=== PATIENT | female | born 1970 | race Caucasian/White ===

== ENCOUNTER 2017-06-06 19:53 | Emergency (ER) | payer OTHER ==
[2017-06-06] MEDS ORDERED: METHYLNALTREXONE BROMIDE (RELISTOR) 12MG/0.6ML SYRINGE SQ ONE (21:20)
--- NOTE | 2017-06-06 21:46 | Emergency Department Record ---
History of Present Illness - General Chief Complaint: General Stated Complaint: CONSTIPATION Time Seen by Provider: 06/06/17 21:20 Source: Patient Mode of Arrival: Ambulatory Limitations: No limitations - History of Present Illness Initial Comments: pt has had no bm for 3 days and is constipated. she has tried fleets enemas, stool softener, and laxatives without results. she attributes her constipation to taking a few tyl 3. she normally has diarrhea MD Complaint: Abdominal pain -: Days(s) Location: Diffuse Severity: Moderate Consistency: Constant, Getting worse Improves With: Nothing Associated Symptoms: Constipation - Related Data Home Medications Medication Instructions Recorded Confirmed Last Taken Amitriptyline HCl [Elavil] 10 mg PO DAILY 06/06/17 06/06/17 Unknown Fluoxetine HCl [Prozac] 10 mg PO DAILY 06/06/17 06/06/17 Unknown Mirabegron [Myrbetriq] 50 mg PO DAILY 06/06/17 06/06/17 Unknown Remicade Infusions-Q 10 Wks 1 06/06/17 Unknown Previous Rx's Medication Instructions Recorded Ondansetron [Zofran Odt] 4 mg PO Q8H #10 tab.rapdis 06/07/17 Allergies Allergy/AdvReac Type Severity Reaction Status Date / Time iodine Allergy ANAPHYLAXIS Verified 05/26/14 11:16 Travel Screening - Travel/Exposure Within Last 30 Days Have you traveled within the last 30 days?: No - Travel Symptoms Symptom Screening: None Review of Systems Reviewed: No additional complaints except as noted below Constitutional: Reports: As per HPI. Denies: Chills, Fever, Malaise, Night sweats, Weakness, Weight change Eyes: Reports: As per HPI. Denies: Eye discharge, Eye pain, Photophobia, Vision change ENT: Reports: As per HPI. Denies: Congestion, Dental pain, Ear pain, Epistaxis , Hearing loss, Throat pain Respiratory: Reports: As per HPI. Denies: Cough, Dyspnea, Hemoptysis, Stridor, Wheezes Cardiovascular: Reports: As per HPI. Denies: Arrhythmia, Chest pain, Dyspnea on exertion, Edema, Murmurs, Orthopnea, Palpitations, Paroxysmal nocturnal dyspnea, Rheumatic Fever, Syncope Endocrine: Reports: As per HPI. Denies: Fatigue, Heat or cold intolerance, Polydipsia, Polyuria Gastrointestinal: Reports: As per HPI, Constipation. Denies: Abdominal pain, Diarrhea, Hematemesis, Hematochezia, Melena, Nausea, Vomiting Genitourinary: Reports: As per HPI. Denies: Abnormal menses, Discharge, Dyspareunia, Dysuria, Frequency, Hematuria, Incontinence, Retention, Urgency Musculoskeletal: Reports: As per HPI. Denies: Arthralgia, Back pain, Gout, Joint swelling, Myalgia, Neck pain Skin: Reports: As per HPI. Denies: Bruising, Change in color, Change in hair/ nails, Lesions, Pruritus, Rash Neurological: Reports: As per HPI. Denies: Abnormal gait, Confusion, Headache, Numbness, Paresthesias, Seizure, Tingling, Tremors, Vertigo, Weakness Psychiatric: Reports: As per HPI. Denies: Anxiety, Auditory hallucinations, Depression, Homicidal thoughts, Suicidal thoughts, Visual hallucinations Hematological/Lymphatic: Reports: As per HPI. Denies: Anemia, Blood Clots, Easy bleeding, Easy bruising, Swollen glands Past Medical History - SOCIAL HISTORY Smoking Status: Never smoker - RESPIRATORY Hx Respiratory Disorders: No - CARDIOVASCULAR Hx Cardio Disorders: No - NEURO Hx Neuro Disorders: No - GI Hx GI Disorders: Yes Hx Abdominal Pain: Yes (comes and goes) Hx Crohn's Disease: Yes Hx Rectal Bleeding: Yes - Hx Genitourinary Disorders: Yes Hx Bladder Problem: Yes (frequency) - ENDOCRINE Hx Endocrine Disorders: Yes - MUSCULOSKELETAL Hx Musculoskeletal Disorders: No - PSYCH Hx Psych Problems: Yes Hx Anxiety: Yes Hx Depression: Yes - HEMATOLOGY/ONCOLOGY Hx Hematology/Oncology Disorders: No Family Medical History Any Significant Family History?: Yes Hx Diabetes: Father Hx Heart Disease: Father Hx HTN: Father Hx Stroke: Father Physical Exam - General General Appearance: Alert, Oriented x3, Cooperative, Mild distress - Head Head exam: Normal inspection - Eye Eye exam: Normal appearance, PERRL, EOMI Pupils: Normal accommodation - ENT ENT exam: Normal exam, Mucous membranes moist, Normal external ear exam, Normal orophraynx Ear exam: Normal external inspection. negative: External canal tenderness Nasal Exam: Normal inspection. negative: Discharge, Sinus tenderness Mouth exam: Normal external inspection, Tongue normal Teeth exam: Normal inspection. negative: Dental caries Throat exam: Normal inspection. negative: Tonsillar erythema, Tonsillar exudate - Neck Neck exam: Normal inspection, Full ROM. negative: Tenderness - Respiratory Respiratory exam: Normal lung sounds bilaterally. negative: Respiratory distress - Cardiovascular Cardiovascular Exam: Regular rate, Normal rhythm, Normal heart sounds - GI/Abdominal GI/Abdominal exam: Soft, Normal bowel sounds, Tenderness - Rectal Rectal exam: Deferred - exam: Deferred - Extremities Extremities exam: Normal inspection, Full ROM, Normal capillary refill. negative: Tenderness - Back Back exam: Reports: Normal inspection, Full ROM. Denies: Muscle spasm, Rash noted, Tenderness - Neurological Neurological exam: Alert, CN II-XII intact, Normal gait, Oriented X3 - Psychiatric Psychiatric exam: Normal affect, Normal mood - Skin Skin exam: Dry, Intact, Normal color, Warm Course Vital Signs 06/06/17 06/06/17 20:33 21:02 Temperature 98.5 F 98.5 F Pulse Rate [ 93 H Pulse Ox Probe] Respiratory 18 Rate Blood Pressure 165/110 [Left Arm] Pulse Ox 97 - Reevaluation(s) Reevaluation #1: 06/06/17 23:57 pt feels a little better Disposition Disposition: Discharge Clinical Impression: Constipation Qualifiers: Constipation type: slow transit constipation Qualified Code(s): K59.01 - Slow transit constipation Disposition: Home, Self-Care Condition: (1) Good Instructions: Constipation (ED), High Fiber Diet (ED), Magnesium Citrate (By mouth) Additional Instructions: follow up with family doctor. return sooner if worse. Prescriptions: Ondansetron [Zofran Odt] 4 mg PO Q8H #10 tab.rapdis Forms: Patient Portal Access Quality - Quality Measures Quality Measures: N/A - Blood Pressure Screening Does Patient Have Any of the Following: No Blood Pressure Classification: Pre-Hypertensive BP Reading Systolic Measurement: 135 Diastolic Measurement: 81 Screening for High Blood Pressure: < Pre-Hypertensive BP, F/U Documented > [ [id number]] Pre-Hypertensive Follow-up Interventions: Follow-up with rescreen every year.
[2017-06-06] MEDS ORDERED: ONDANSETRON 4 MG ODT TABLET SL ONE (23:57)
[2017-06-06] MEDS ORDERED: MAGNESIUM CITRATE 296 ML BTL PO ONE (23:58)
== END 2017-06-07 00:13 | disposition home or self-care (01) ==
LOC: ER 19:53
DX: K59.01 Slow transit constipation (principal); R10.9 Unspecified abdominal pain
CPT/HCPCS: 99282

== ENCOUNTER 2017-08-05 09:35 | Day surgery (SDC) | payer OTHER ==
[2017-08-05] MEDS ORDERED: LIDOCAINE 2% MDV (20MG/ML) 20ML VIAL IV ONE (09:36)
[2017-08-05] MEDS ORDERED: PROPOFOL 10 MG/ML VIAL IV ONE (09:36)
--- NOTE | 2017-08-05 14:20 | Operative Note ---
DATE OF SURGERY: 08/05/2017 OPERATION: COLONOSCOPY with biopsy. PREOPERATIVE DIAGNOSIS: History of Crohn's colitis, rule out dysplasia. PROCEDURE: After informed consent was obtained from the patient, she was placed in the left lateral decubitus position in the endoscopy suite, sedated and monitored by the department of anesthesia. Digital rectal examination was unremarkable. A well-lubricated [id number] colonoscope was inserted into the rectum and advanced to the cecum. The cecum, cecal bulb, and terminal ileum were unremarkable. Preparation quality was good. Every 10 cm 4-quadrant biopsies were obtained through the ascending colon, transverse colon, descending colon, sigmoid colon, and rectum. No excessive bleeding was noted. No inflammatory changes were noted. There were some scarring changes noted in the left colon presumably from prior colitis and healing. J-turn views of the rectum were not performed given the somewhat narrowed rectal vault. RECOMMENDATIONS: The patient should continue on her current medical program. We would recommend a repeat exam in 2 years provided no dysplasia is found on her current biopsies. As always, thank you for allowing me to participate in the healthcare of your patients. CC: Dr. Kadeem RANDALL
== END 2017-08-05 10:55 | disposition home or self-care (01) ==
LOC: HOP 09:35
PROVIDERS: ATTEND Internal Medicine Gastroenterology
DX: K50.90 Crohn's disease, unspecified, without complications (principal); K63.5 Polyp of colon